=== PATIENT | male | born 1955 | race Caucasian/White ===

== ENCOUNTER 2023-03-17 09:55 | Outpatient (CLI) | payer MEDICARE, BC, SELFPAY | END 2023-03-17 09:56 | disposition home or self-care (01) | PROVIDERS: PCP Family Medicine; Visit Provider Family Medicine | DX: Z00.00 Encounter for general adult medical examination without abnormal findings (principal); I10 Essential (primary) hypertension; E78.5 Hyperlipidemia, unspecified; Z12.5 Encounter for screening for malignant neoplasm of prostate | CPT/HCPCS: 80048; 80061; 84153; 84460 ==

== ENCOUNTER 2024-04-01 09:41 | Outpatient (CLI) | payer MEDICARE, BC, SELFPAY | END 2024-04-01 09:42 | disposition home or self-care (01) | PROVIDERS: PCP Family Medicine; Visit Provider Family Medicine | DX: I10 Essential (primary) hypertension (principal); E78.2 Mixed hyperlipidemia; Z12.5 Encounter for screening for malignant neoplasm of prostate | CPT/HCPCS: 80048; 80061; 84460; G0103 ==

== ENCOUNTER 2024-05-28 08:57 | Outpatient (CLI) | payer MEDICARE, BC, SELFPAY ==
--- NOTE | 2024-05-28 09:15 | MR_ITS ---
[facility] [address] [facility] [address] Phone:?[phone] Fax:?[phone] Referring Physician Information: Gurjit Urbina M.D. [address] [place] [id number] Phone:?[phone] Fax:?[phone] Patient:Humaira Sanchez D.O.B:?1955 Sex:?Male Phone:?[phone] [facility] MRN:?[id number] Exam Date:?05/28/2024 EXAM: MRI of the LEFT SHOULDER, without contrast CLINICAL INFORMATION: Male, 68 years old, with shoulder pain INDICATION: Evaluate for rotator cuff tear. PRIOR SURGERY: None reported. PLAIN FILMS: Shoulder radiographs 05/13/2024 COMPARISONS: No prior MRIs available. TECHNICAL INFORMATION: Using a 1.5T MR scanner and a localizing surface coil: Coronals: PD, T2, STIR Sagittals: PD, T2 Axials: PD, T2 SEDATION: None CONTRAST: None FINDINGS: Bones: Proximal humerus: No fracture or marrow edema/pathology. No humeral Hill-Sachs or reverse Hill-Sachs lesion/impaction or contusion. Glenoid: No fracture or marrow edema/pathology. No osseous Bankart lesion. Rotator cuff and muscles/tendons: Supraspinatus: Mild supraspinatus tendinosis with small region of interstitial splitting at the mid distal insertional footprint measuring 6 mm in AP dimension. No high-grade tendon tearing or retraction. Infraspinatus: Mild infraspinatus tendinosis with interstitial splitting at the distal insertional footprint measuring 8 mm in AP dimension, without high-grade or full-thickness tendon tearing. No muscle belly atrophy. Teres minor: No tendinopathy, tear or atrophy. Subscapularis: Mild subscapularis tendinosis without tear. Deltoid: No strain or atrophy. Coracoacromial arch: Acromion morphology: The acromion has type II morphology. Tiny anterior subacromial osseous spur. Acromiohumeral space: The acromiohumeral space is within normal limits. Coracohumeral space: The coracohumeral space is within normal limits. Acromioclavicular joint: Joint: Moderate AC joint arthrosis. There is subchondral cystic change in the distal clavicle and acromion, with inferior osteophytosis which results in contour deformity of the underlying supraspinatus. Relatively prominent appearance of marrow edema extends across the joint. Ligaments: Coracoclavicular ligaments are intact. Bursae: Subacromial-subdeltoid: No convincing subacromial bursal thickening/bursitis. Subcoracoid: No convincing subcoracoid bursal thickening/bursitis. Biceps tendon: The long head of the biceps tendon is present within the bicipital groove. The intra-articular and extra-articular segments are intact without tendinosis, tenosynovitis, or displacement. Glenohumeral joint: Effusion/cyst: No significant glenohumeral joint effusion. Articular cartilage: Humeral head: There is diffuse grade 2 chondral heterogeneity and mild thinning of the humeral head articular cartilage without high-grade or full-thickness chondral defect. Glenoid: Grade 2 chondral thinning of the posterior glenoid articular cartilage. Mild posterior osteophytosis. Loose bodies: No discrete intra-articular body within the joint. Labrum:?No discrete SLAP tear. Degeneration and fraying is suspected to involve the posterosuperior labrum. No paralabral ganglion cyst is identified. Inferior glenohumeral ligament/axillary pouch:?Intact. The axillary pouch is normal in thickness and signal. No evidence of adhesive capsulitis or capsular injury. IMPRESSION: 1. 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 Given degree of marrow edema extending across the joint, this may reflect a symptomatic finding. 2. Mild supraspinatus and infraspinatus tendinosis with low-grade interstitial splitting at the insertional footprint. No high-grade tendon tearing. 3. Mild subscapularis tendinosis without tear. 4. Mild chondral thinning of the humeral head and glenoid with mild glenoid osteophytosis. 5. Suspected degeneration and fraying of the posterosuperior labrum. 6. No tendinopathy, tear, or displacement of the long head of the biceps tendon. KME Electronically signed on 05/28/2024 2:00:00 PM by Gracia Call M.D.
== END 2024-05-28 08:58 | disposition home or self-care (01) ==
LOC: MRI 08:58
PROVIDERS: PCP Family Medicine; Visit Provider Orthopaedic Surgery
DX: M25.512 Pain in left shoulder (principal); M19.012 Primary osteoarthritis, left shoulder; M75.102 Unspecified rotator cuff tear or rupture of left shoulder, not specified as traumatic; M25.712 Osteophyte, left shoulder
CPT/HCPCS: 73221

== ENCOUNTER 2025-05-20 13:33 | Outpatient (CLI) | payer MEDICARE, BC, SELFPAY | END 2025-05-20 13:34 | disposition home or self-care (01) | LOC: FBOREF 13:34 | PROVIDERS: PCP Family Medicine; Visit Provider Family Medicine | DX: I10 Essential (primary) hypertension (principal); E78.2 Mixed hyperlipidemia; N40.0 Benign prostatic hyperplasia without lower urinary tract symptoms; R53.83 Other fatigue | CPT/HCPCS: 80048; 80061; 85025; G0103 ==